=== PATIENT | female | born 1985 | race Caucasian/White ===

== ENCOUNTER 2017-01-28 22:25 | Inpatient (IN) | payer BC ==
[2017-01-28] MEDS ORDERED: Sodium Chloride 0.9% 10 ML Syringe FLUSH PRN (23:43)
[2017-01-28] MEDS ORDERED: Sodium Chloride 0.9% 2.5 ML Syringe FLUSH PRN (23:43)
[2017-01-28] MEDS ORDERED: Methylergonovine 0.2 MG/1 ML Amp IM PRN (23:43)
[2017-01-28] MEDS ORDERED: Nalbuphine 10 MG/1 ML Vial IVPUSH PRN (23:43)
[2017-01-28] MEDS ORDERED: Lidocaine 1% 50 ML MDV INJECT PRN (23:43)
[2017-01-28] MEDS ORDERED: Carboprost Tromethamine 250 MCG/1 ML Amp IM PRN (23:43)
[2017-01-28] MEDS ORDERED: Misoprostol 200 MCG Tab PO PRN (23:43)
[2017-01-28] MEDS ORDERED: Water For Irrigation,Sterile 1,000 ML Container IRR PRN (23:43)
[2017-01-28] MEDS ORDERED: Oxytocin/Lactated Ringers 30 UNIT/500 ML BAG IV SCH (23:45)
[2017-01-28] MEDS ORDERED: Terbutaline 1 MG/ML SDV SUBCUT PRN (23:45)
[2017-01-29] MEDS: Lactated Ringers 1,000 ML IV SCH ×4 (00:10→20:10)
[2017-01-29] MEDS: Misoprostol 25 MCG (1/4 of 100 MCG) Tab PO SCH ×3 (00:11→06:04)
[2017-01-29] MEDS ORDERED: Oxytocin/Lactated Ringers 30 UNIT/500 ML BAG IV SCH (02:30)
[2017-01-29] MEDS ORDERED: Misoprostol 100 MCG Tab PO ONE ×2 (03:00→06:08)
[2017-01-29] MEDS ORDERED: Misoprostol 50 MCG (1/2 of 100 MCG) Tab PO ONE ×2 (06:03→08:59)
[2017-01-29] MEDS ORDERED: Misoprostol 50 MCG (1/2 of 100 MCG) Tab ONE (06:10)
[2017-01-29] MEDS ORDERED: Misoprostol 50 MCG (1/2 of 100 MCG) Tab PO SCH ×2 (12:00→18:00)
[2017-01-29] MEDS: Butorphanol 1 MG/ML SDV IVPUSH PRN ×2 (12:03→13:09)
[2017-01-29] MEDS ORDERED: fentaNYL 100 MCG/2 ML SDV ONE (14:01)
[2017-01-29] MEDS ORDERED: Ropivacaine HCl/PF 100 ML ONE (14:01)
--- NOTE | 2017-01-29 14:45 | PCM.PREANE ---
Preanesthetic Assessment - Anesthesia/Transfusion/Family Hx Anesthesia History: Prior Anesthesia Without Reaction (sedation with wisdom teeth only) Family History of Anesthesia Reaction: No Transfusion History: No Prior Transfusion(s) - Review of Systems General: No Symptoms Pulmonary: No Symptoms Cardiovascular: No Symptoms Gastrointestinal: No symptoms Neurological: No Symptoms Other: Reports: None - Physical Assessment NPO Status Date: 01/29/17 NPO Status Time: 14:45 (sips/chips) Blood Pressure: 126/83 Height: 5 ft 2.4 in Weight: 167 lb ASA Class: 2 Mental Status: Alert & Oriented x3 Airway Class: Mallampati = 2 Dentition: Reports: Normal Dentition ROM/Head Extension: Full Lungs: Clear to auscultation, Normal respiratory effort Cardiovascular: Regular Rate, Regular Rhythm - Lab Values: Laboratory Last Values WBC 11.13 K/uL (4.0-11.0) H 01/28/17 23:59 RBC 4.28 M/uL (4.30-5.90) L 01/28/17 23:59 Hgb 13.3 g/dL (12.0-16.0) 01/28/17 23:59 Hct 38.3 % (36.0-46.0) 01/28/17 23:59 MCV 89.5 fL (80.0-98.0) 01/28/17 23:59 MCH 31.1 pg (27.0-32.0) 01/28/17 23:59 MCHC 34.7 g/dL (31.0-37.0) 01/28/17 23:59 RDW Std Deviation 45.0 fl (28.0-62.0) 01/28/17 23:59 RDW Coeff of Clement 14 % (11.0-15.0) 01/28/17 23:59 Plt Count 276 K/uL (150-400) 01/28/17 23:59 MPV 9.20 fL (7.40-12.00) 01/28/17 23:59 Neut % (Auto) 75.3 % (48.0-80.0) 01/28/17 23:59 Lymph % (Auto) 19.4 % (16.0-40.0) 01/28/17 23:59 Austin % (Auto) 4.9 % (0.0-15.0) 01/28/17 23:59 Eos % (Auto) 0.3 % (0.0-7.0) 01/28/17 23:59 Baso % (Auto) 0.1 % (0.0-1.5) 01/28/17 23:59 Neut # (Auto) 8.4 K/uL (1.4-5.7) H 01/28/17 23:59 Lymph # (Auto) 2.2 K/uL (0.6-2.4) 01/28/17 23:59 Austin # (Auto) 0.5 K/uL (0.0-0.8) 01/28/17 23:59 Eos # (Auto) 0.0 K/uL (0.0-0.7) 01/28/17 23:59 Baso # (Auto) 0.0 K/uL (0.0-0.1) 01/28/17 23:59 Nucleated RBC % 0.0 /100WBC 01/28/17 23:59 Nucleated RBCs # 0 K/uL 01/28/17 23:59 Blood Type O POSITIVE 01/28/17 23:59 Antibody Screen NEGATIVE 01/28/17 23:59 KB Screen SEE NOTE 01/28/17 23:59 KB Cells Counted 0 01/28/17 23:59 KB Red Cells Counted 202301/28/17 23:59 KB % Cells 0.00 01/28/17 23:59 - Allergies Allergies/Adverse Reactions: Allergies Allergy/AdvReac Type Severity Reaction Status Date / Time No Known Allergies Allergy Verified 01/28/17 23:43 - Blood Blood Available: No Product(s) Available: None - Anesthesia Plan Free Text/Narrative:: Labor Epidural for 37/5 demise - Acknowledgements Anesthesia Type Planned: Epidural Pt an Appropriate Candidate for the Planned Anesthesia: Yes Alternatives and Risks of Anesthesia Discussed w Pt/Guardian: Yes Pt/Guardian Understands and Agrees with Anesthesia Plan: Yes PreAnesthesia Questionnaire Gastrointestinal History: Reports: Other (see below) Other Gastrointestinal History: heartburn in EYELETTER History: Reports: , Other (see below) Other OB/BYN History: demise this - Past Surgical History HEENT Surgical History: Reports: Oral surgery (wisdom teeth removed) - SUBSTANCE USE Smoking Status *Q: Current Some Day Smoker - CURRENT (IN HOUSE) MEDS Current Meds: Current Medications Butorphanol Tartrate (Stadol) 1 mg IVPUSH Q1H PRN PRN Reason: Pain Last Admin: 01/29/17 13:09 Dose: 1 mg Carboprost Tromethamine (Hemabate Ds) 250 mcg IM ASDIRECTED PRN PRN Reason: Post Hemorrhage Hydroxyzine Pamoate (Vistaril) 50 mg PO BEDTIME RUDY Lactated Ringer's (Ringers, Lactated) 1,000 mls @ 150 mls/hr IV ASDIRECTED RUDY Last Admin: 01/29/17 14:03 Dose: 150 mls/hr Oxytocin/Lactated Ringer's (Pitocin In Lr 30 Units/500 Ml) 30 unit in 500 mls @ 2 mls/hr IV TITRATE RUDY; 2 MUNITS/MIN PRN Reason: Protocol Lidocaine HCl (Xylocaine 1%) 50 ml INJECT .ONCE PRN PRN Reason: Laceration repair Methylergonovine Maleate (Methergine) 0.2 mg IM ASDIRECTED PRN PRN Reason: Post Hemorrhage Misoprostol (Cytotec) 200 mcg PO .ONCE PRN PRN Reason: Post Hemorrhage Misoprostol (Cytotec) 100 mcg PO Q3H RUDY Last Admin: 01/29/17 12:09 Dose: 100 mcg Sodium Chloride (Saline Flush) 10 ml FLUSH ASDIRECTED PRN PRN Reason: Keep Vein Open Sodium Chloride (Saline Flush) 2.5 ml FLUSH ASDIRECTED PRN PRN Reason: Keep Vein Open Sterile Water (Sterile Water For Irrigation) 1,000 ml IRR ASDIRECTED PRN PRN Reason: delivery Terbutaline Sulfate (Brethine) 0.25 mg SUBCUT ASDIRECTED PRN PRN Reason: Tacysystole Discontinued Medications Fentanyl (Sublimaze) Confirm Administered Dose 100 mcg .ROUTE .STK-MED ONE Stop: 01/29/17 14:02 Oxytocin/Lactated Ringer's (Pitocin In Lr 30 Units/500 Ml) 30 unit in 500 mls @ 999 mls/hr IV TITRATE RUDY PRN Reason: 999 MUNITS/MIN Stop: 01/29/17 00:16 Ropivacaine (Naropin 0.2%) Confirm Administered Dose 100 mls @ as directed .ROUTE .STK-MED ONE Stop: 01/29/17 14:02 Misoprostol (Cytotec) 50 mcg PO Q3H RUDY Last Admin: 01/29/17 06:04 Dose: Not Given Misoprostol (Cytotec) 100 mcg PO ONETIME ONE Stop: 01/29/17 03:01 Last Admin: 01/29/17 02:56 Dose: 100 mcg Misoprostol (Cytotec) 50 mcg PO ONETIME ONE Stop: 01/29/17 06:04 Misoprostol (Cytotec) 100 mcg PO ONETIME ONE Stop: 01/29/17 06:09 Last Admin: 01/29/17 06:13 Dose: 100 mcg Misoprostol (Cytotec) Confirm Administered Dose 100 mcg .ROUTE .STK-MED ONE Stop: 01/29/17 06:11 Last Admin: 01/29/17 06:21 Dose: Not Given Misoprostol (Cytotec) 100 mcg PO ONETIME ONE Stop: 01/29/17 09:00 Last Admin: 01/29/17 09:09 Dose: 100 mcg Nalbuphine HCl (Nubain) 10 mg IVPUSH Q1H PRN PRN Reason: Pain (severe 7-10) Stop: 01/29/17 01:44
[2017-01-29] MEDS ORDERED: hydrOXYzine Pamoate 25 MG Cap PO SCH (21:00)
[2017-01-29] MEDS ORDERED: Ibuprofen 800 MG Tab PO PRN (22:20)
[2017-01-29] MEDS ORDERED: Docusate Sodium 100 MG Cap PO PRN (22:20)
[2017-01-29] MEDS ORDERED: Benzocaine/Menthol 20%-0.5% Spray 78 GM Cannister TOP PRN (22:20)
[2017-01-29] MEDS ORDERED: Bisacodyl 10 MG Supp RECTAL PRN (22:20)
[2017-01-29] MEDS ORDERED: oxyCODONE 5 MG Tab PO PRN (22:20)
[2017-01-29] MEDS ORDERED: Acetaminophen 500 MG Tab PO PRN (22:20)
[2017-01-29] MEDS ORDERED: Witch Hazel Medicated Pads 40/Jar TOP PRN (22:20)
[2017-01-29] MEDS ORDERED: Lanolin 100% Cream 7 GM Tube TOP PRN (22:20)
--- NOTE | 2017-01-29 23:37 | OR ---
SURGEON: Hoa Melgoza DATE OF PROCEDURE: 01/29/2017 BRIEF PREOPERATIVE HISTORY: This is a 31-year-old, G1, P0, presented to [facility] yesterday for ultrasound to follow up on growth. During the ultrasound, no cardiac activity was identified. The patient was diagnosed with an intrauterine demise at 36 weeks. The patient was counseled and patient desired to go forward with induction of labor later on in the evening. The patient was admitted to Labor and Delivery. Of note, the patient's was uncomplicated and there was no identifying cause on ultrasound in regard to . Of note, the only abnormality the patient had during her entire is that on her anatomy ultrasound, there was a left ventricular echogenic focus and also mild pyelectasis identified both which are soft markers for Down syndrome and patient was also noted to be a smoker. After admission to Labor and Delivery. The patient was started on p.o. Cytotec, first 50 mcg, then it was eventually up to 100 mcg. This was completed every 3 hours via oral route. On initial exam, patient was noted to be closed, thick, and high. After receiving several doses of Cytotec throughout the day, patient eventually was uncomfortable enough and finally was 1 cm dilated. Once patient's pain reached 8 out of 10, the patient did receive her epidural for comfort. After epidural, the patient was noted to still be 1 cm dilated, 90% effaced, and -2 station. The patient underwent spontaneous rupture of membranes and after the exam, the patient was found to be 3 cm dilated, 90% effaced. Eventually, patient let her nurse know that she was feeling rectal pressure, and on exam, patient was noted to be an anterior lip and +2 station. The patient eventually started maternal expulsive efforts. PREOPERATIVE DIAGNOSES: 1. Intrauterine demise at 36 weeks one days. 2. GBS negative. 3. Unknown cause of intrauterine demise. POSTOPERATIVE DIAGNOSIS: 1. Intrauterine demise at 36 weeks one days. 2. GBS negative. 3. Unknown cause of intrauterine demise. 4. Delivered status. PROCEDURE PERFORMED: Spontaneous-assisted vaginal delivery. ANESTHESIA: Epidural. ESTIMATED BLOOD LOSS: 75 mL. FINDINGS: Stillborn male fetus with weight of 6 pounds, 1 ounce. With skin sloughing. Bloody amniotic fluid. Intact placenta with 3-vessel cord and intact perineum. Specimen removed was the placenta that was sent to pathology. CONDITION: Postop, the patient tolerated the procedure well. COMPLICATIONS: None known. DESCRIPTION OF PROCEDURE: This female under epidural anesthesia delivered a stillborn male fetus with weight of 6 pounds, 1 ounce. Delivery was via spontaneous assisted vaginal delivery with the fetus in vertex presentation. Upon delivery of vertex, the neck was checked. There was no nuchal to be reduced. The anterior shoulder delivered spontaneously followed by the body. The cord was doubly clamped and cut and sent. The family did not want to see the fetus initially. The fetus was covered in a towel and taken directly over to the baby nurse. After delivery, IV Pitocin was given in a bolus fashion to prevent excessive maternal blood loss and help expel the placenta. With signs of placental separation, a gentle fundal massage was performed along with traction on the umbilical cord and a normal appearing though small looking placenta with a three-vessel cord was delivered. After delivery of the infant and placenta, the vagina, perineum, and rectum were explored and patient had just labia minora abrasions that were hemostatic. The patient had intact perineum. Afterwards, the patient was cleansed, pads were changed and bed was returned to functioning status. The patient tolerated the procedure well. The patient was left to mourn and or celis with family after delivery. Sponge lap, needle, and instrument counts were correct. CLAUDIA / HILTON /[id number] KATHERYN
--- NOTE | 2017-01-30 08:18 | PCM.PNPP ---
- General Info Date of Service: 01/30/17 Functional Status: Reports: pain controlled, tolerating diet, ambulating, urinating - Review of Systems General: Reports: No Symptoms HEENT: Reports: no symptoms Pulmonary: Reports: no symptoms Cardiovascular: Reports: No Symptoms Gastrointestinal: Reports: No symptoms Genitourinary: Reports: no symptoms Musculoskeletal: Reports: no symptoms Skin: Reports: no symptoms Neurological: Reports: No Symptoms Psychiatric: Reports: other (appropriate mood for situation) - General Info Date of Service: 01/30/17 - Patient Data Vital Signs - most recent: Last Vital Signs Temp 36.8 C 01/30/17 04:15 Pulse 72 01/30/17 04:15 Resp 16 01/30/17 04:15 BP 120/59 L 01/30/17 04:15 Pulse Ox 97 01/30/17 04:15 Weight - most recent: 75.75 kg Med Orders - Current: Current Medications Acetaminophen (Tylenol Extra Strength) 500 mg PO Q4H PRN PRN Reason: Pain Last Admin: 01/29/17 23:43 Dose: 500 mg Benzocaine/Menthol (Dermoplast Pain Relief 20%-0.5% Kinsman) 78 gm TOP ASDIRECTED PRN PRN Reason: Perineal Comfort Measure Bisacodyl (Dulcolax) 10 mg RECTAL .ONCE PRN PRN Reason: Constipation Butorphanol Tartrate (Stadol) 1 mg IVPUSH Q1H PRN PRN Reason: Pain Last Admin: 01/29/17 13:09 Dose: 1 mg Carboprost Tromethamine (Hemabate Ds) 250 mcg IM ASDIRECTED PRN PRN Reason: Post Hemorrhage Docusate Sodium (Colace) 100 mg PO BID PRN PRN Reason: Constipation Emollient Ointment (Lansinoh Hpa) 0 gm TOP ASDIRECTED PRN PRN Reason: Sore Nipples Hydroxyzine Pamoate (Vistaril) 50 mg PO BEDTIME RUDY Lactated Ringer's (Ringers, Lactated) 1,000 mls @ 150 mls/hr IV ASDIRECTED RUDY Last Admin: 01/29/17 20:10 Dose: 150 mls/hr Oxytocin/Lactated Ringer's (Pitocin In Lr 30 Units/500 Ml) 30 unit in 500 mls @ 2 mls/hr IV TITRATE RUDY; 2 MUNITS/MIN PRN Reason: Protocol Ibuprofen (Motrin) 800 mg PO Q6H PRN PRN Reason: Pain Last Admin: 01/29/17 23:44 Dose: 800 mg Lidocaine HCl (Xylocaine 1%) 50 ml INJECT .ONCE PRN PRN Reason: Laceration repair Methylergonovine Maleate (Methergine) 0.2 mg IM ASDIRECTED PRN PRN Reason: Post Hemorrhage Misoprostol (Cytotec) 200 mcg PO .ONCE PRN PRN Reason: Post Hemorrhage Misoprostol (Cytotec) 100 mcg PO Q6H RUDY Last Admin: 01/29/17 18:17 Dose: 100 mcg Oxycodone HCl (Oxycodone) 5 mg PO Q2H PRN PRN Reason: Pain Sodium Chloride (Saline Flush) 10 ml FLUSH ASDIRECTED PRN PRN Reason: Keep Vein Open Sodium Chloride (Saline Flush) 2.5 ml FLUSH ASDIRECTED PRN PRN Reason: Keep Vein Open Sterile Water (Sterile Water For Irrigation) 1,000 ml IRR ASDIRECTED PRN PRN Reason: delivery Last Admin: 01/29/17 23:46 Dose: 1,000 ml Terbutaline Sulfate (Brethine) 0.25 mg SUBCUT ASDIRECTED PRN PRN Reason: Tacysystole Witch Claire (Tucks) 1 pad TOP ASDIRECTED PRN PRN Reason: comfort care Discontinued Medications Fentanyl (Sublimaze) Confirm Administered Dose 100 mcg .ROUTE .STK-MED ONE Stop: 01/29/17 14:02 Oxytocin/Lactated Ringer's (Pitocin In Lr 30 Units/500 Ml) 30 unit in 500 mls @ 999 mls/hr IV TITRATE RUDY PRN Reason: 999 MUNITS/MIN Stop: 01/29/17 00:16 Last Admin: 01/29/17 21:25 Dose: 999 munits/min, 999 mls/hr Ropivacaine (Naropin 0.2%) Confirm Administered Dose 100 mls @ as directed .ROUTE .STK-MED ONE Stop: 01/29/17 14:02 Misoprostol (Cytotec) 50 mcg PO Q3H RUDY Last Admin: 01/29/17 06:04 Dose: Not Given Misoprostol (Cytotec) 100 mcg PO ONETIME ONE Stop: 01/29/17 03:01 Last Admin: 01/29/17 02:56 Dose: 100 mcg Misoprostol (Cytotec) 50 mcg PO ONETIME ONE Stop: 01/29/17 06:04 Misoprostol (Cytotec) 100 mcg PO ONETIME ONE Stop: 01/29/17 06:09 Last Admin: 01/29/17 06:13 Dose: 100 mcg Misoprostol (Cytotec) Confirm Administered Dose 100 mcg .ROUTE .STK-MED ONE Stop: 01/29/17 06:11 Last Admin: 01/29/17 06:21 Dose: Not Given Misoprostol (Cytotec) 100 mcg PO ONETIME ONE Stop: 01/29/17 09:00 Last Admin: 01/29/17 09:09 Dose: 100 mcg Misoprostol (Cytotec) 100 mcg PO Q3H RUDY Last Admin: 01/29/17 12:09 Dose: 100 mcg Nalbuphine HCl (Nubain) 10 mg IVPUSH Q1H PRN PRN Reason: Pain (severe 7-10) Stop: 01/29/17 01:44 - Infant Interaction Support Person: - Recovery Exam Fundal Tone: Firm Fundal Level: 1 Fingerbreadths Below Umbilicus Fundal Placement: Midline Lochia Amount: Small Lochia Color: Rubra/Red Perineum Description: Intact, Minimal Bruising/Swelling Episiotomy/Laceration: None Bladder Status: Voiding Urinary Elimination: Voided - Exam General: alert, oriented Neck: supple Lungs: Clear to auscultation, Normal respiratory effort Cardiovascular: Regular Rate, Regular Rhythm Abdomen: bowel sounds present, soft, no tenderness Extremities: no calf tenderness Skin: warm, dry, intact Neurological: no new focal deficit Psy/Mental Status: alert, normal affect, normal mood - Problem List & Annotations (1) Vaginal delivery SNOMED Code(s): 887525976 Code(s): O80 - ENCOUNTER FOR FULL-TERM UNCOMPLICATED DELIVERY Status: Acute Current Visit: Yes (2) demise > 22 weeks, delivered, current hospitalization SNOMED Code(s): 829443451 Code(s): O36.4XX0 - MATERNAL CARE FOR INTRAUTERINE , NOT APPLICABLE OR UNSP Status: Acute Current Visit: Yes - Problem List Review Problem List Initiated/Reviewed/Updated: Yes - My Orders Last 24 Hours: My Active Orders 01/29/17 18:00 Misoprostol [Cytotec] 100 mcg PO Q6H 01/29/17 21:00 hydrOXYzine Pamoate [Vistaril] 50 mg PO BEDTIME 01/29/17 22:20 Patient Status [ADT] Routine Up ad Meka [RC] ASDIRECTED Vital Signs [RC] PER UNIT ROUTINE Acetaminophen [Tylenol Extra Strength] 500 mg PO Q4H PRN Benzocaine/Menthol [Dermoplast Pain Relief 20%-0.5% Kinsman] 78 gm TOP ASDIRECTED PRN Bisacodyl [Dulcolax] 10 mg RECTAL .ONCE PRN Docusate Sodium [Colace] 100 mg PO BID PRN Ibuprofen [Motrin] 800 mg PO Q6H PRN Lanolin [Lansinoh HPA] See Dose Instructions TOP ASDIRECTED PRN Witch Claire [Tucks] 1 pad TOP ASDIRECTED PRN oxyCODONE 5 mg PO Q2H PRN Assess Lochia [WOMSER] Per Unit Routine Assess Uterine Involution [WOMSER] Per Unit Routine Peripheral IV Discontinue [OM.PC] Routine 01/29/17 22:22 Ice Therapy [OM.PC] Per Unit Routine Perineal Care [OM.PC] Per Unit Routine Sitz Bath [OM.PC] Per Unit Routine 01/30/17 10:00 Ready for Discharge [RC] PER UNIT ROUTINE - Assessment Assessment:: PPD#1 S/p SAVD of 36wk demise Doing as well as to be expected for current situation Desires discharge home later today - Plan Plan:: Will discharge home today at patient's convenience
[2017-01-30 08:54] VITALS: BP 111/61
--- NOTE | 2017-01-30 10:39 | PCM48HPAN ---
Post Anesthesia Note - EVALUATION WITHIN 48HRS OF ANESTHETIC Vital Signs in Normal Range: Yes Patient Participated in Evaluation: Yes Respiratory Function Stable: Yes Airway Patent: Yes Cardiovascular Function Stable: Yes Hydration Status Stable: Yes Pain Control Satisfactory: Yes Nausea and Vomiting Control Satisfactory: Yes Mental Status Recovered: Yes
== END 2017-01-30 10:35 | disposition home or self-care (01) | DRG 560 ==
LOC: MW.OBCHECK 22:25 → MW.OB 22:29 → MW.OBCHECK 01-29 09:33 → MW.OB 01-29 09:33 → OBSVTOIN 01-29 22:25
PROVIDERS: ADMIT Obstetrics & Gynecology; ATTEND Obstetrics & Gynecology
PROC: 10E0XZZ Delivery of Products of Conception, External Approach (ICD-10-PCS; principal; 2017-01-29)
PROC: 3E0P7GC Introduction of Other Therapeutic Substance into Female Reproductive, Via Natural or Artificial Opening (ICD-10-PCS; 2017-01-29)
DX: O36.4XX0 Maternal care for intrauterine death, not applicable or unspecified (principal); F17.200 Nicotine dependence, unspecified, uncomplicated; Z3A.36 36 weeks gestation of pregnancy; Z37.1 Single stillbirth
CPT/HCPCS: 01967; 36415; 81241; 85025; 85613; 85730; 86146; 86147; 86747; 86850; 86900; 86901; 88233; 88307; A9270-GY; J0595; J7120

== ENCOUNTER 2020-11-13 01:50 | Inpatient (IN) | payer BC ==
[2020-11-13] MEDS ORDERED: Misoprostol 25 MCG (1/4 of 100 MCG) Tab VAG PRN ×2 (01:56)
[2020-11-13] MEDS ORDERED: Sodium Chloride 0.9% 10 ML SDV IV PRN (01:56)
[2020-11-13] MEDS ORDERED: Tranexamic Acid 1,000 MG in Sodium Chloride 0.9% 100 ML IV PRN (01:56)
[2020-11-13] MEDS ORDERED: Carboprost Tromethamine 250 MCG/1 ML Amp IM PRN (01:56)
[2020-11-13] MEDS ORDERED: Sodium Chloride 0.9% 2.5 ML Syringe FLUSH PRN (01:56)
[2020-11-13] MEDS ORDERED: Butorphanol 1 MG/ML SDV IVPUSH PRN (01:56)
[2020-11-13] MEDS ORDERED: Misoprostol 200 MCG Tab PO PRN (01:56)
[2020-11-13] MEDS ORDERED: Terbutaline 1 MG/ML SDV SUBCUT PRN (01:56)
[2020-11-13] MEDS ORDERED: Nalbuphine 10 MG/1 ML Vial IVPUSH PRN (01:56)
[2020-11-13] MEDS ORDERED: Sodium Chloride 0.9% 10 ML Syringe FLUSH PRN (01:56)
[2020-11-13] MEDS ORDERED: Lidocaine 1% 50 ML MDV INJECT PRN (01:56)
[2020-11-13] MEDS ORDERED: Water For Irrigation,Sterile 1,000 ML Container IRR PRN (01:56)
[2020-11-13] MEDS ORDERED: Methylergonovine 0.2 MG/1 ML Amp IM PRN (01:56)
[2020-11-13] MEDS ORDERED: Oxytocin/0.9 % Sodium Chloride 30 UNIT/500 ML BAG IV SCH ×2 (02:00)
[2020-11-13] MEDS ORDERED: Lactated Ringers 1,000 ML IV SCH (02:00)
[2020-11-13] MEDS ORDERED: fentaNYL 100 MCG/2 ML SDV ONE (10:23)
[2020-11-13] MEDS ORDERED: Ropivacaine HCl/PF 100 ML ONE (10:23)
--- NOTE | 2020-11-13 10:51 | PCM.PREANE ---
Preanesthetic Assessment - Anesthesia/Transfusion/Family Hx Anesthesia History: Prior Anesthesia Without Reaction Family History of Anesthesia Reaction: No Transfusion History: No Prior Transfusion(s) - Physical Assessment NPO Status Date: 11/13/20 NPO Status Time: 06:00 Height: 1.57 m Weight: 79.379 kg ASA Class: 2 - Lab Values: Laboratory Last Values WBC 8.02 K/uL (4.0-11.0) 11/13/20 02:25 RBC 4.07 M/uL (4.30-5.90) L 11/13/20 02:25 Hgb 12.5 g/dL (12.0-16.0) 11/13/20 02:25 Hct 36.9 % (36.0-46.0) 11/13/20 02:25 MCV 90.7 fL (80.0-98.0) 11/13/20 02:25 MCH 30.7 pg (27.0-32.0) 11/13/20 02:25 MCHC 33.9 g/dL (31.0-37.0) 11/13/20 02:25 RDW Std Deviation 44.3 fl (28.0-62.0) 11/13/20 02:25 RDW Coeff of Clement 14 % (11.0-15.0) 11/13/20 02:25 Plt Count 239 K/uL (150-400) 11/13/20 02:25 MPV 9.80 fL (7.40-12.00) 11/13/20 02:25 Nucleated RBC % 0.0 /100WBC 11/13/20 02:25 Nucleated RBCs # 0 K/uL 11/13/20 02:25 Blood Type O POSITIVE 11/13/20 02:25 Antibody Screen NEGATIVE 11/13/20 02:25 - Allergies Allergies/Adverse Reactions: Allergies Allergy/AdvReac Type Severity Reaction Status Date / Time No Known Allergies Allergy Verified 01/28/17 23:43 - Acknowledgements Anesthesia Type Planned: Epidural Pt an Appropriate Candidate for the Planned Anesthesia: Yes Alternatives and Risks of Anesthesia Discussed w Pt/Guardian: Yes Pt/Guardian Understands and Agrees with Anesthesia Plan: Yes PreAnesthesia Questionnaire Gastrointestinal History: Reports: Other (See Below) Other Gastrointestinal History: heartburn in [employer]IC[employer] ANALYST History: Reports: , Other (See Below) Other OB/BYN History: demise 2017 Hematologic History: Reports: Other (See Below) Other Hematologic History: Factor V - Infectious Disease History Infectious Disease History: Reports: Chicken Pox - Past Surgical History HEENT Surgical History: Reports: Oral Surgery - SUBSTANCE USE Tobacco Use Status *Q: Former Tobacco User Tobacco Use Within Last Twelve Months: Cigarettes Second Hand Smoke Exposure: Yes Recreational Drug Use History: Yes Recreational Drug Type: Reports: Marijuana/Hashish - CURRENT (IN HOUSE) MEDS Current Meds: Current Medications Butorphanol Tartrate (Stadol) 1 mg IVPUSH Q1H PRN PRN Reason: Pain Last Admin: 11/13/20 08:59 Dose: 1 mg Documented by: Carboprost Tromethamine (Hemabate Ds) 250 mcg IM ASDIRECTED PRN PRN Reason: Post Hemorrhage Oxytocin/Sodium Chloride (Oxytocin 30 Unit/500 Ml-Ns) 30 unit in 500 mls @ 999 mls/hr IV TITRATE RUDY Tranexamic Acid 1,000 mg/ (Sodium Chloride) 110 mls @ 660 mls/hr IV ONETIME PRN PRN Reason: Bleeding Oxytocin/Sodium Chloride (Oxytocin 30 Unit/500 Ml-Ns) 30 unit in 500 mls @ 2 mls/hr IV TITRATE RUDY; Protocol Lactated Ringer's (Ringers, Lactated) 1,000 mls @ 150 mls/hr IV ASDIRECTED RUDY Last Admin: 11/13/20 09:56 Dose: 999 mls/hr Documented by: Lidocaine HCl (Xylocaine 1%) 50 ml INJECT ONETIME PRN PRN Reason: Laceration repair Methylergonovine Maleate (Methergine) 0.2 mg IM ASDIRECTED PRN PRN Reason: Post Hemorrhage Misoprostol (Cytotec) 200 mcg PO ONETIME PRN PRN Reason: Post Hemorrhage Misoprostol (Cytotec) 25 mcg VAG ONETIME PRN PRN Reason: Cervical Ripening Last Admin: 11/13/20 03:05 Dose: 25 mcg Documented by: Misoprostol (Cytotec) 25 mcg VAG Q4H PRN PRN Reason: Cervical Ripening Last Admin: 11/13/20 08:28 Dose: 25 mcg Documented by: Nalbuphine HCl (Nubain) 10 mg IVPUSH Q1H PRN PRN Reason: Pain (severe 7-10) Sodium Chloride (Saline Flush) 10 ml FLUSH ASDIRECTED PRN PRN Reason: Keep Vein Open Sodium Chloride (Saline Flush) 2.5 ml FLUSH ASDIRECTED PRN PRN Reason: Keep Vein Open Sodium Chloride (Normal Saline) 10 ml IV ASDIRECTED PRN PRN Reason: IV Use Sterile Water (Sterile Water For Irrigation) 1,000 ml IRR ASDIRECTED PRN PRN Reason: delivery Terbutaline Sulfate (Brethine) 0.25 mg SUBCUT ASDIRECTED PRN PRN Reason: Tacysystole Discontinued Medications Fentanyl (Sublimaze) Confirm Administered Dose 100 mcg .ROUTE .[employer]-MED ONE Stop: 11/13/20 10:24 Ropivacaine (Naropin 0.2%) Confirm Administered Dose 100 mls @ as directed .ROUTE .[employer]-MED ONE Stop: 11/13/20 10:24
--- NOTE | 2020-11-13 11:01 | PCM.PRNOTE ---
- Free Text/Narrative Note: ANES NOTE Patient requests epidural for labor and delivery. Sitting position, sterile technique. Level L1-L2 Choloraprep scrub to lumbar area. Sterile fenestrated drape applied. Epidural space easily achieved with single attempt, using EUSEBIA technique. EUSEBIA at 3cm. Epidural cath threaded 5cm with ease. Cath secured at skin, using clear, sterile, adhesive dressing. Test dose 1030, 3cc of 1.5% lido with 1:200,000 epinephrine. Negative response. Loading dose 1033, 10cc of 0.2% ropivacaine with 1mcg/cc of fentanyl added, added in slow divided doses. 1038 Pump started with 90cc of same solution. Rate is 8cc hr, with 6cc q20 minute PRN bolus. Patient tolerated well, T10 level of sensory changes noted. Patient reports excellent analgesia. Time with patient [id number]. Dann Lemus CRNA
[2020-11-13] MEDS ORDERED: Witch Hazel Medicated Pads 40/Jar TOP PRN (15:29)
[2020-11-13] MEDS ORDERED: Docusate Sodium 100 MG Cap PO PRN (15:29)
[2020-11-13] MEDS ORDERED: Bisacodyl 10 MG Supp RECTAL PRN (15:29)
[2020-11-13] MEDS ORDERED: oxyCODONE 5 MG Tab PO PRN (15:29)
[2020-11-13] MEDS ORDERED: Benzocaine/Menthol 20%-0.5% Spray 78 GM Cannister TOP PRN (15:29)
[2020-11-13] MEDS ORDERED: Ibuprofen 400 MG Tab PO PRN (15:29)
[2020-11-13] MEDS ORDERED: Lanolin 100% Cream 7 GM Tube TOP PRN (15:29)
[2020-11-13] MEDS ORDERED: Acetaminophen 500 MG Tab PO PRN ×2 (15:29)
--- NOTE | 2020-11-13 15:36 | PCM.OPNOTE ---
- General Post-Op/Procedure Note Date of Surgery/Procedure: 11/13/20 Operative Procedure(s): /IP Findings: Viable female APGARs 8, 9 weight pending. Spontaneous delivery intact placenta with 3V cord Pre Op Diagnosis: 40 week IUP. IOL--history of demise Post-Op Diagnosis: Same Anesthesia Technique: Epidural Primary Surgeon: Shirley Mark EBL in mLs: 200 Complications: none known Condition: Good
[2020-11-13] MEDS: Ibuprofen 800 MG Tab PO PRN (17:55)
--- NOTE | 2020-11-13 19:00 | OR ---
SURGEON: Shirley Mark M.D. DATE OF PROCEDURE: 11/13/2020 PREOPERATIVE DIAGNOSES: 1. A 40-week intrauterine . 2. Induction of labor with history of a 36-week demise. POSTOPERATIVE DIAGNOSES: 1. A 40-week intrauterine . 2. Induction of labor with history of a 36-week demise. PROCEDURE: Spontaneous vaginal delivery, intact perineum. PRIMARY SURGEON: Shirley Mark MD ANESTHESIA: Epidural. ESTIMATED BLOOD LOSS: 200 mL. COMPLICATIONS: None known. FINDINGS: Viable female, score of 8 at one minute and 9 at five minutes, weight is pending. Spontaneous delivery, intact placenta, 3-vessel cord. DISPOSITION: Infant to nursery, mom in LDRP. PROCEDURE DETAILS: Desiree is a 34-year-old, G2, P 0-1-0-0, at 40 weeks' gestational age, who presented on the evening of 11/13/2020 for scheduled induction of labor due to term gestation with history of a 36-week demise. On initial examination, the patient was found to be 1 cm, fairly thick, minus 3 station, therefore was initiated on Cytotec ripening, responded nicely to this. The following morning, she was found to be 3 cm, 60% effaced, minus 2 station. Another dose of Cytotec was placed. heart tones were category 1. Amniotomy was performed shortly before 9 a.m. as she is group B strep negative. The patient became increasingly uncomfortable, underwent regional anesthesia in the form of epidural, became more comfortable. Pitocin was started shortly before noon. The patient responded nicely to this and continued to progress more rapidly thereafter, and at approximately 2 p.m., she was found to be 8 cm, 100% effaced, 0 station. Within the next hour, began having a few more variable decelerations, and was found to be complete, 100% effaced, +1 station. Began pushing efforts, pushed readily to a +3 station, I was called for delivery. Upon my arrival, the patient was then placed in modified dorsal lithotomy position, was prepped and draped in usual aseptic manner. Was able to push to deliver the infant's head atraumatically spontaneously, followed by anterior shoulder, posterior shoulder, and remainder of the body without difficulty. The infant's oropharynx and nares were bulb suctioned. The was handed off to her mother with attending nursing staff at her side. After a delay, cord was clamped x2 and cut. Cord arterial, cord venous, cord blood sampling obtained. Light pressure was applied while the placenta was delivered spontaneously intact. Vigorous fundal uterine massage was then applied while 30 units of Pitocin was delivered in 500 mL of fluid. Upon inspection of cervix, vaginal sidewall, and perineum, they were found to be intact. Uterus remained firm. Hemostasis evident. Sponge count and instrument count were correct. The patient remained in LDRP, infant to nursery. BILL / [place]IL[place] /[id number] MTDD
--- NOTE | 2020-11-14 07:27 | PCM.PNPP ---
<Gisselle Vergara - Last Filed: 11/14/20 07:21> - General Info Date of Service: 11/14/20 Admission Dx/Problem (Free Text): term - delivered Subjective Update: Patient doing well this AM, ambulating appropriately and tolerating diet, minimal pain controlled with PO motrin, voiding without difficulty, no BM yet - encouraged stool softeners and fluids, going ok - would like to speak to , unsure if wanting discharge today or tomorrow Functional Status: Reports: Pain Controlled - Review of Systems General: Reports: No Symptoms HEENT: Reports: No Symptoms Pulmonary: Reports: No Symptoms Cardiovascular: Reports: No Symptoms Gastrointestinal: Reports: No Symptoms Genitourinary: Reports: No Symptoms Musculoskeletal: Reports: No Symptoms Skin: Reports: No Symptoms Neurological: Reports: No Symptoms Psychiatric: Reports: No Symptoms - General Info Date of Service: 11/14/20 - Patient Data Vital Signs - Most Recent: Last Vital Signs Temp 97.7 F 11/14/20 03:20 Pulse 92 11/14/20 03:20 Resp 20 11/14/20 03:20 BP 110/65 11/14/20 03:20 Pulse Ox 96 11/14/20 03:20 Weight - Most Recent: 79.379 kg Lab Results - Last 24 Hours: Laboratory Results - last 24 hr 11/13/20 11/14/20 Range/Units 15:02 06:06 Hgb 11.9 L (12.0-16.0) g/dL Hct 34.8 L (36.0-46.0) % Cord ABG pH 7.226 (7.18-7.38) Cord ABG Base Excess -3 (-10--2) Cord VBG pH 7.333 (7.25-7.45) Cord VBG Base Excess -3 (-10--2) Med Orders - Current: Current Medications Acetaminophen (Tylenol Extra Strength) 500 mg PO Q4H PRN PRN Reason: Pain Acetaminophen (Tylenol Extra Strength) 1,000 mg PO Q4H PRN PRN Reason: Pain Benzocaine/Menthol (Dermoplast Pain Relief 20%-0.5% Sondheimer) 78 gm TOP ASDIRECTED PRN PRN Reason: Perineal Comfort Measure Bisacodyl (Dulcolax) 10 mg RECTAL ONETIME PRN PRN Reason: Constipation Carboprost Tromethamine (Hemabate Ds) 250 mcg IM ASDIRECTED PRN PRN Reason: Post Hemorrhage Docusate Sodium (Colace) 100 mg PO BID PRN PRN Reason: Constipation Emollient Ointment (Lansinoh Hpa) 0 gm TOP ASDIRECTED PRN PRN Reason: Sore Nipples Oxytocin/Sodium Chloride (Oxytocin 30 Unit/500 Ml-Ns) 30 unit in 500 mls @ 999 mls/hr IV TITRATE RUDY Tranexamic Acid 1,000 mg/ (Sodium Chloride) 110 mls @ 660 mls/hr IV ONETIME PRN PRN Reason: Bleeding Oxytocin/Sodium Chloride (Oxytocin 30 Unit/500 Ml-Ns) 30 unit in 500 mls @ 2 mls/hr IV TITRATE RUDY; Protocol Last Titration: 11/13/20 12:35 Dose: 4 munits/min, 4 mls/hr Documented by: Lactated Ringer's (Ringers, Lactated) 1,000 mls @ 150 mls/hr IV ASDIRECTED RUDY Last Admin: 11/13/20 09:56 Dose: 999 mls/hr Documented by: Ibuprofen (Motrin) 400 mg PO Q4H PRN PRN Reason: Pain Ibuprofen (Motrin) 800 mg PO Q6H PRN PRN Reason: Pain Last Admin: 11/13/20 17:55 Dose: 800 mg Documented by: Lidocaine HCl (Xylocaine 1%) 50 ml INJECT ONETIME PRN PRN Reason: Laceration repair Oxycodone HCl (Oxycodone) 5 mg PO Q2H PRN PRN Reason: Pain Sodium Chloride (Saline Flush) 10 ml FLUSH ASDIRECTED PRN PRN Reason: Keep Vein Open Sodium Chloride (Saline Flush) 2.5 ml FLUSH ASDIRECTED PRN PRN Reason: Keep Vein Open Sodium Chloride (Normal Saline) 10 ml IV ASDIRECTED PRN PRN Reason: IV Use Sterile Water (Sterile Water For Irrigation) 1,000 ml IRR ASDIRECTED PRN PRN Reason: delivery Witch Claire (Tucks) 1 pad TOP ASDIRECTED PRN PRN Reason: comfort care Discontinued Medications Butorphanol Tartrate (Stadol) 1 mg IVPUSH Q1H PRN PRN Reason: Pain Last Admin: 11/13/20 08:59 Dose: 1 mg Documented by: Fentanyl (Sublimaze) Confirm Administered Dose 100 mcg .ROUTE .STK-MED ONE Stop: 11/13/20 10:24 Ropivacaine (Naropin 0.2%) Confirm Administered Dose 100 mls @ as directed .ROUTE .STK-MED ONE Stop: 11/13/20 10:24 Methylergonovine Maleate (Methergine) 0.2 mg IM ASDIRECTED PRN PRN Reason: Post Hemorrhage Misoprostol (Cytotec) 200 mcg PO ONETIME PRN PRN Reason: Post Hemorrhage Misoprostol (Cytotec) 25 mcg VAG ONETIME PRN PRN Reason: Cervical Ripening Last Admin: 11/13/20 03:05 Dose: 25 mcg Documented by: Misoprostol (Cytotec) 25 mcg VAG Q4H PRN PRN Reason: Cervical Ripening Last Admin: 11/13/20 08:28 Dose: 25 mcg Documented by: Nalbuphine HCl (Nubain) 10 mg IVPUSH Q1H PRN PRN Reason: Pain (severe 7-10) Terbutaline Sulfate (Brethine) 0.25 mg SUBCUT ASDIRECTED PRN PRN Reason: Tacysystole - Infant Interaction Disposition, : [place] in Room with Family Infant Interaction: Holding Infant Infant Feeding: Difficulty with Latch-on Support Person: - Recovery Exam Fundal Tone: Firm Fundal Level: At Umbilicus Fundal Placement: Midline Lochia Amount: Small, Moderate Lochia Color: Rubra/Red Episiotomy/Laceration: None Bladder Status: Voiding Urinary Elimination: Voided - Exam General: Alert, Oriented HEENT: Pupils Equal Neck: Supple Lungs: Clear to Auscultation, Normal Respiratory Effort Cardiovascular: Regular Rate, Regular Rhythm GI/Abdominal Exam: Soft, No Distention, No Mass, Other (appropriately tender) Extremities: Normal Inspection, Normal Range of Motion, Non-Tender, No Pedal Edema Skin: Warm, Dry, Intact Neurological: No New Focal Deficit Psy/Mental Status: Alert, Normal Affect, Normal Mood - Problem List & Annotations (1) Vaginal delivery SNOMED Code(s): 734623881 Code(s): O80 - ENCOUNTER FOR FULL-TERM UNCOMPLICATED DELIVERY Status: Acute Current Visit: Yes Onset Date: ~11/12/20 - Problem List Review Problem List Initiated/Reviewed/Updated: Yes - Assessment Assessment:: 40 week ppd1 s/p vaginal delivery of live female infant 11/13/20. Vitals and labs reviewed and stable - Plan Plan:: 1. Routine pp cares 2. Pain well controlled with PO motrin - continue PRN 3. stool softeners and fluids 4. may shower 5. d/c PIV 6. consult to help with difficult latch 7. possible d/c today per patient wishes - is medically stable for d/c <Shirley Mark - Last Filed: 11/14/20 10:22> - Patient Data Vital Signs - Most Recent: Last Vital Signs Temp 36.6 C 11/14/20 08:23 Pulse 80 11/14/20 08:23 Resp 18 11/14/20 08:23 BP 106/65 11/14/20 08:23 Pulse Ox 100 11/14/20 08:23 Lab Results - Last 24 Hours: Laboratory Results - last 24 hr 11/13/20 11/14/20 Range/Units 15:02 06:06 Hgb 11.9 L (12.0-16.0) g/dL Hct 34.8 L (36.0-46.0) % Cord ABG pH 7.226 (7.18-7.38) Cord ABG Base Excess -3 (-10--2) Cord VBG pH 7.333 (7.25-7.45) Cord VBG Base Excess -3 (-10--2) Med Orders - Current: Current Medications Acetaminophen (Tylenol Extra Strength) 500 mg PO Q4H PRN PRN Reason: Pain Acetaminophen (Tylenol Extra Strength) 1,000 mg PO Q4H PRN PRN Reason: Pain Benzocaine/Menthol (Dermoplast Pain Relief 20%-0.5% Sondheimer) 78 gm TOP ASDIRECTED PRN PRN Reason: Perineal Comfort Measure Bisacodyl (Dulcolax) 10 mg RECTAL ONETIME PRN PRN Reason: Constipation Carboprost Tromethamine (Hemabate Ds) 250 mcg IM ASDIRECTED PRN PRN Reason: Post Hemorrhage Docusate Sodium (Colace) 100 mg PO BID PRN PRN Reason: Constipation Emollient Ointment (Lansinoh Hpa) 0 gm TOP ASDIRECTED PRN PRN Reason: Sore Nipples Oxytocin/Sodium Chloride (Oxytocin 30 Unit/500 Ml-Ns) 30 unit in 500 mls @ 999 mls/hr IV TITRATE RUDY Tranexamic Acid 1,000 mg/ (Sodium Chloride) 110 mls @ 660 mls/hr IV ONETIME PRN PRN Reason: Bleeding Oxytocin/Sodium Chloride (Oxytocin 30 Unit/500 Ml-Ns) 30 unit in 500 mls @ 2 mls/hr IV TITRATE RUDY; Protocol Last Titration: 11/13/20 12:35 Dose: 4 munits/min, 4 mls/hr Documented by: Lactated Ringer's (Ringers, Lactated) 1,000 mls @ 150 mls/hr IV ASDIRECTED RUDY Last Admin: 11/13/20 09:56 Dose: 999 mls/hr Documented by: Ibuprofen (Motrin) 400 mg PO Q4H PRN PRN Reason: Pain Ibuprofen (Motrin) 800 mg PO Q6H PRN PRN Reason: Pain Last Admin: 11/13/20 17:55 Dose: 800 mg Documented by: Lidocaine HCl (Xylocaine 1%) 50 ml INJECT ONETIME PRN PRN Reason: Laceration repair Oxycodone HCl (Oxycodone) 5 mg PO Q2H PRN PRN Reason: Pain Sodium Chloride (Saline Flush) 10 ml FLUSH ASDIRECTED PRN PRN Reason: Keep Vein Open Sodium Chloride (Saline Flush) 2.5 ml FLUSH ASDIRECTED PRN PRN Reason: Keep Vein Open Sodium Chloride (Normal Saline) 10 ml IV ASDIRECTED PRN PRN Reason: IV Use Sterile Water (Sterile Water For Irrigation) 1,000 ml IRR ASDIRECTED PRN PRN Reason: delivery Witch Claire (Tucks) 1 pad TOP ASDIRECTED PRN PRN Reason: comfort care Discontinued Medications Butorphanol Tartrate (Stadol) 1 mg IVPUSH Q1H PRN PRN Reason: Pain Last Admin: 11/13/20 08:59 Dose: 1 mg Documented by: Fentanyl (Sublimaze) Confirm Administered Dose 100 mcg .ROUTE .STK-MED ONE Stop: 11/13/20 10:24 Ropivacaine (Naropin 0.2%) Confirm Administered Dose 100 mls @ as directed .ROUTE .STK-MED ONE Stop: 11/13/20 10:24 Methylergonovine Maleate (Methergine) 0.2 mg IM ASDIRECTED PRN PRN Reason: Post Hemorrhage Misoprostol (Cytotec) 200 mcg PO ONETIME PRN PRN Reason: Post Hemorrhage Misoprostol (Cytotec) 25 mcg VAG ONETIME PRN PRN Reason: Cervical Ripening Last Admin: 11/13/20 03:05 Dose: 25 mcg Documented by: Misoprostol (Cytotec) 25 mcg VAG Q4H PRN PRN Reason: Cervical Ripening Last Admin: 11/13/20 08:28 Dose: 25 mcg Documented by: Nalbuphine HCl (Nubain) 10 mg IVPUSH Q1H PRN PRN Reason: Pain (severe 7-10) Terbutaline Sulfate (Brethine) 0.25 mg SUBCUT ASDIRECTED PRN PRN Reason: Tacysystole - My Orders Last 24 Hours: My Active Orders 11/13/20 15:29 Patient Status [ADT] Routine May Shower [RC] ASDIRECTED Notify Provider Vital Signs [RC] ASDIRECTED Up ad Meak [RC] ASDIRECTED Acetaminophen [Tylenol Extra Strength] 1,000 mg PO Q4H PRN Acetaminophen [Tylenol Extra Strength] 500 mg PO Q4H PRN Benzocaine/Menthol [Dermoplast Pain Relief 20%-0.5% Sondheimer] 78 gm TOP ASDIRECTED PRN Docusate Sodium [Colace] 100 mg PO BID PRN Ibuprofen [Motrin] 400 mg PO Q4H PRN Ibuprofen [Motrin] 800 mg PO Q6H PRN Lanolin [Lansinoh HPA] See Dose Instructions TOP ASDIRECTED PRN bisacodyL [Dulcolax] 10 mg RECTAL ONETIME PRN oxyCODONE 5 mg PO Q2H PRN witch Claire [Tucks] 1 pad TOP ASDIRECTED PRN Assess Lochia [WOMSER] Per Unit Routine Assess Uterine Involution [WOMSER] Per Unit Routine Ice Therapy [OM.PC] Per Unit Routine Perineal Care [OM.PC] Per Unit Routine Peripheral IV Discontinue [OM.PC] Routine Sitz Bath [OM.PC] Per Unit Routine 11/13/20 Dinner Regular Diet [DIET] - Plan Plan:: Patient seen and examined--agree with above. Patient would like to go home later today> Discharge instructions reviewed. Follow up at [facility] 4 weeks. Discharge to home.
--- NOTE | 2020-11-14 07:31 | PCM48HPAN ---
Post Anesthesia Note - EVALUATION WITHIN 48HRS OF ANESTHETIC Vital Signs in Normal Range: Yes Patient Participated in Evaluation: Yes Respiratory Function Stable: Yes Airway Patent: Yes Cardiovascular Function Stable: Yes Hydration Status Stable: Yes Pain Control Satisfactory: Yes (Reports pain 1/10) Nausea and Vomiting Control Satisfactory: Yes (Denies nausea, taking PO well) Mental Status Recovered: Yes Vital Signs: Last Vital Signs Temp 36.5 C 11/14/20 03:20 Pulse 92 11/14/20 03:20 Resp 20 11/14/20 03:20 BP 110/65 11/14/20 03:20 Pulse Ox 96 11/14/20 03:20 - COMMENTS/OBSERVATIONS Free Text/Narrative:: Ambulating well, reports full return of strength and sensation to BLE.
[2020-11-14] MEDS: Ibuprofen 800 MG Tab PO PRN (20:02)
[2020-11-15 05:35] VITALS: PULSE 78
--- NOTE | 2020-11-15 07:34 | PCM.PNPP ---
- General Info Date of Service: 11/15/20 Admission Dx/Problem (Free Text): term - delivered Subjective Update: Doing well this am, ready to go home. minimal pain - controlled with motrin. ambulating and voiding appropriately, no BM yet. Saw yesterday, feeling better about BF Functional Status: Reports: Pain Controlled - Review of Systems General: Reports: No Symptoms HEENT: Reports: No Symptoms Pulmonary: Reports: No Symptoms Cardiovascular: Reports: No Symptoms Gastrointestinal: Reports: No Symptoms Genitourinary: Reports: No Symptoms Musculoskeletal: Reports: No Symptoms Skin: Reports: No Symptoms Neurological: Reports: No Symptoms Psychiatric: Reports: No Symptoms - General Info Date of Service: 11/15/20 - Patient Data Vital Signs - Most Recent: Last Vital Signs Temp 97.6 F 11/15/20 04:20 Pulse 78 11/15/20 04:20 Resp 16 11/15/20 04:20 BP 116/77 11/15/20 04:20 Pulse Ox 95 11/15/20 04:20 Weight - Most Recent: 175 lb Med Orders - Current: Current Medications Acetaminophen (Tylenol Extra Strength) 500 mg PO Q4H PRN PRN Reason: Pain Acetaminophen (Tylenol Extra Strength) 1,000 mg PO Q4H PRN PRN Reason: Pain Benzocaine/Menthol (Dermoplast Pain Relief 20%-0.5% [place]) 78 gm TOP ASDIRECTED PRN PRN Reason: Perineal Comfort Measure Bisacodyl (Dulcolax) 10 mg RECTAL ONETIME PRN PRN Reason: Constipation Carboprost Tromethamine (Hemabate Ds) 250 mcg IM ASDIRECTED PRN PRN Reason: Post Hemorrhage Docusate Sodium (Colace) 100 mg PO BID PRN PRN Reason: Constipation Last Admin: 11/14/20 20:02 Dose: 100 mg Documented by: Emollient Ointment (Lansinoh Hpa) 0 gm TOP ASDIRECTED PRN PRN Reason: Sore Nipples Last Admin: 11/14/20 20:03 Dose: 1 applicful Documented by: Oxytocin/Sodium Chloride (Oxytocin 30 Unit/500 Ml-Ns) 30 unit in 500 mls @ 999 mls/hr IV TITRATE RUDY Tranexamic Acid 1,000 mg/ (Sodium Chloride) 110 mls @ 660 mls/hr IV ONETIME PRN PRN Reason: Bleeding Oxytocin/Sodium Chloride (Oxytocin 30 Unit/500 Ml-Ns) 30 unit in 500 mls @ 2 mls/hr IV TITRATE RUDY; Protocol Last Titration: 11/13/20 12:35 Dose: 4 munits/min, 4 mls/hr Documented by: Lactated Ringer's (Ringers, Lactated) 1,000 mls @ 150 mls/hr IV ASDIRECTED RUDY Last Admin: 11/13/20 09:56 Dose: 999 mls/hr Documented by: Ibuprofen (Motrin) 400 mg PO Q4H PRN PRN Reason: Pain Ibuprofen (Motrin) 800 mg PO Q6H PRN PRN Reason: Pain Last Admin: 11/14/20 20:02 Dose: 800 mg Documented by: Lidocaine HCl (Xylocaine 1%) 50 ml INJECT ONETIME PRN PRN Reason: Laceration repair Oxycodone HCl (Oxycodone) 5 mg PO Q2H PRN PRN Reason: Pain Sodium Chloride (Saline Flush) 10 ml FLUSH ASDIRECTED PRN PRN Reason: Keep Vein Open Sodium Chloride (Saline Flush) 2.5 ml FLUSH ASDIRECTED PRN PRN Reason: Keep Vein Open Sodium Chloride (Normal Saline) 10 ml IV ASDIRECTED PRN PRN Reason: IV Use Sterile Water (Sterile Water For Irrigation) 1,000 ml IRR ASDIRECTED PRN PRN Reason: delivery Witch Claire (Tucks) 1 pad TOP ASDIRECTED PRN PRN Reason: comfort care Discontinued Medications Butorphanol Tartrate (Stadol) 1 mg IVPUSH Q1H PRN PRN Reason: Pain Last Admin: 11/13/20 08:59 Dose: 1 mg Documented by: Fentanyl (Sublimaze) Confirm Administered Dose 100 mcg .ROUTE .STK-MED ONE Stop: 11/13/20 10:24 Ropivacaine (Naropin 0.2%) Confirm Administered Dose 100 mls @ as directed .ROUTE .STK-MED ONE Stop: 11/13/20 10:24 Methylergonovine Maleate (Methergine) 0.2 mg IM ASDIRECTED PRN PRN Reason: Post Hemorrhage Misoprostol (Cytotec) 200 mcg PO ONETIME PRN PRN Reason: Post Hemorrhage Misoprostol (Cytotec) 25 mcg VAG ONETIME PRN PRN Reason: Cervical Ripening Last Admin: 11/13/20 03:05 Dose: 25 mcg Documented by: Misoprostol (Cytotec) 25 mcg VAG Q4H PRN PRN Reason: Cervical Ripening Last Admin: 11/13/20 08:28 Dose: 25 mcg Documented by: Nalbuphine HCl (Nubain) 10 mg IVPUSH Q1H PRN PRN Reason: Pain (severe 7-10) Terbutaline Sulfate (Brethine) 0.25 mg SUBCUT ASDIRECTED PRN PRN Reason: Tacysystole - Infant Interaction Infant Disposition, : in Room with Family Infant Interaction: Holding Infant Feeding: Attempted ; Nursed Fair/Poor, Continues to Breastfeed, Difficulty with Latch-on Support Person: - Recovery Exam Fundal Tone: Firm Fundal Level: 2 Fingerbreadths Below Umbilicus Fundal Placement: Midline Lochia Amount: Scant Lochia Color: Rubra/Red Episiotomy/Laceration: None Bladder Status: Voiding Urinary Elimination: Voided - Exam General: Alert, Oriented HEENT: Pupils Equal Neck: Supple Lungs: Clear to Auscultation, Normal Respiratory Effort Cardiovascular: Regular Rate, Regular Rhythm GI/Abdominal Exam: Normal Bowel Sounds, Soft, Non-Tender, No Organomegaly, No Distention, No Abnormal Bruit, No Mass, Pelvis Stable Extremities: Normal Inspection, Normal Range of Motion, Non-Tender, No Pedal Edema, Normal Capillary Refill Skin: Warm, Dry, Intact Wound/Incisions: Healing Well Neurological: No New Focal Deficit Psy/Mental Status: Alert, Normal Affect, Normal Mood - Problem List & Annotations (1) Vaginal delivery SNOMED Code(s): 189243308 Code(s): O80 - ENCOUNTER FOR FULL-TERM UNCOMPLICATED DELIVERY Status: Acute Current Visit: Yes Onset Date: ~11/12/20 - Problem List Review Problem List Initiated/Reviewed/Updated: Yes - Assessment Assessment:: 40 week ppd1 s/p vaginal delivery of live female infant 11/13/20. Vitals wnl - Plan Plan:: Patient seen and examined--agree with above. Patient would like to go home later today> Discharge instructions reviewed. Follow up at [facility] 4 weeks. Discharge to home.
--- NOTE | 2020-11-15 08:30 | PCM.SN.2 ---
- Free Text/Narrative Note: Patient seen and examined--PPD 2--stayed to work with . Is feeling more comfortable today. Discharge to home today
[2020-11-15 09:12] VITALS: BP 119/75
== END 2020-11-15 13:15 | disposition home or self-care (01) | DRG 560 ==
LOC: MW.OBCHECK 01:50 → MW.OB 01:50 → MW.OBCHECK 01:56 → OBSVTOIN 15:02 → MW.OB 17:32
PROVIDERS: ADMIT Obstetrics & Gynecology; ATTEND Obstetrics & Gynecology
PROC: 10E0XZZ Delivery of Products of Conception, External Approach (ICD-10-PCS; principal; 2020-11-13)
PROC: 3E0R3BZ Introduction of Anesthetic Agent into Spinal Canal, Percutaneous Approach (ICD-10-PCS; 2020-11-13)
PROC: 00HU33Z Insertion of Infusion Device into Spinal Canal, Percutaneous Approach (ICD-10-PCS; 2020-11-13)
PROC: 3E0P7VZ Introduction of Hormone into Female Reproductive, Via Natural or Artificial Opening (ICD-10-PCS; 2020-11-13)
DX: O48.0 Post-term pregnancy (principal); Z3A.40 40 weeks gestation of pregnancy; Z37.0 Single live birth; Z87.891 Personal history of nicotine dependence
CPT/HCPCS: 01967; 36415; 59025; 82803; 85014; 85018; 85027; 86592; 86850; 86900; 86901; A9270-GY; J0595; J2590; J2795; J3010; J7120